=== PATIENT | male | born 1955 | race Caucasian/White ===

== ENCOUNTER 2018-11-11 10:19 | Emergency (ER) | payer MEDICARE, BC ==
[~2018-11-11] VITALS: Ht 182.9 cm; Wt 95.8 kg
[~2018-11-11 10:19] MED LIST: GOLYS PO; MULT-1085 PO
[2018-11-11 10:44] VITALS: BP 110/81
[2018-11-11 11:09] LABS: CLARITY,URINE CLOUDY (Clear); COLOR,URINE YELLOW (Yellow); GLUCOSE, URINE NEGATIVE (Neg); KETONES,URINE NEGATIVE (Neg); LEUKOCYTE ESTERASE ,URINE MODERATE (Neg); NITRITES, URINE POSITIVE (Neg); OCCULT BLOOD,URINE MODERATE (Neg); PROTEIN,URINE 100 mg/dl (Neg); UROBILINOGEN,URINE 0.2 E.U/dL (0.2-1.0)
[2018-11-11 11:10] LABS: UA COLLECTION TYPE CLN CATCH MIDSTREAM
[2018-11-11 11:16] LABS: BACTERIA,URINE 3+ /HPF (Neg); SQUAMOUS EPITHELIAL CELL,UR FEW /LPF (FEW)
[2018-11-11 11:17] LABS: WBC CLUMPS,URINE MANY /HPF (NEGATIVE); WBC,URINE TNTC /HPF (0-4)
[2018-11-12] MEDS ORDERED: CEPH500C5 PO (08:28)
== END 2018-11-11 14:57 | disposition left against medical advice (07) ==
LOC: ER 10:19
DX: R30.9 Painful micturition, unspecified (principal); R42 Dizziness and giddiness; R10.30 Lower abdominal pain, unspecified; R68.83 Chills (without fever); R33.9 Retention of urine, unspecified; Z53.21 Procedure and treatment not carried out due to patient leaving prior to being seen by health care provider
CPT/HCPCS: 81001; 87077; 87088; 87186

== ENCOUNTER 2018-11-12 05:50 | Emergency (ER) | payer MEDICARE, BC ==
[~2018-11-12] VITALS: Ht 182.9 cm; Wt 94.9 kg
[2018-11-12] MEDS ORDERED: normal saline 1000ML IV soln IVB ONE (06:50)
[2018-11-12] MEDS ORDERED: CefTRIAXone 2gm/D5W 50ml 50 ML IV ONE (06:50)
[2018-11-12 07:21] LABS: CLARITY,URINE CLOUDY (Clear); COLOR,URINE YELLOW (Yellow); GLUCOSE, URINE NEGATIVE (Neg); KETONES,URINE NEGATIVE (Neg); LEUKOCYTE ESTERASE ,URINE MODERATE (Neg); NITRITES, URINE POSITIVE (Neg); OCCULT BLOOD,URINE MODERATE (Neg); PROTEIN,URINE 100 mg/dl (Neg)
[2018-11-12 07:23] LABS: BASOPHILS # (AUTO) 0.1 X10'3 (0-0.2); BASOPHILS % (AUTO) 0.6 % (0-1); EOSINOPHILS # (AUTO) 0.1 X10'3 (0-0.9); EOSINOPHILS % (AUTO) 0.6 % (0-6); HEMATOCRIT 47.9 % (42.0-52.0); HEMOGLOBIN 16.4 g/dl (14.0-17.9); LYMPHOCYTES # (AUTO) 1.5 X10'3 (1.1-4.8); LYMPHOCYTES % (AUTO) 10.6 % (21-51); MEAN CORPUSCULAR HEMOGLOBIN 32.8 PG (27.0-31.0); MEAN CORPUSCULAR HGB CONC 34.2 g/dL (33.0-36.5); MONOCYTES # (AUTO) 1.3 X10'3 (0-0.9); NEUTROPHILS # (AUTO) 11.6 X10'3 (1.8-7.7); NEUTROPHILS % (AUTO) 79.2 % (42-75); PLATELET COUNT 245 X10'3 (140-440); RED BLOOD COUNT 4.99 X10'6 (4.70-6.10); RED CELL DISTRIBUTION WIDTH 13.1 % (11.5-14.5); WHITE BLOOD COUNT 14.6 X10'3 (4.5-11.0)
[2018-11-12 07:27] LABS: UA COLLECTION TYPE NON-SPECIFIED
[2018-11-12 07:28] LABS: WBC,URINE TNTC /HPF (0-4)
[2018-11-12 07:29] LABS: BACTERIA,URINE 3+ /HPF (Neg)
[2018-11-12 07:30] LABS: SQUAMOUS EPITHELIAL CELL,UR NONE SEEN /LPF (FEW)
[2018-11-12 07:34] LABS: ALANINE AMINOTRANSFERASE 42 U/L (12-78); ALBUMIN 3.4 G/DL (3.4-5.0); ALBUMIN/GLOBULIN RATIO 0.8 (1.1-1.5); ALKALINE PHOSPHATASE 101 IU/L (46-116); ANION GAP 9 (8-16); ASPARTATE AMINO TRANSFERASE 21 U/L (10-37); BLOOD UREA NITROGEN 12 MG/DL (7-18); BUN/CREATININE RATIO 13.6 (5.4-32.0); CALCIUM 9.8 MG/DL (8.5-10.1); CHLORIDE 98 MMOL/L (99-107); CREATININE 0.88 MG/DL (0.60-1.10); GLUCOSE 127 MG/DL (70-104); POTASSIUM 3.9 MMOL/L (3.5-5.1); SODIUM 133 MMOL/L (135-145); TOTAL CARBON DIOXIDE 25.7 MMOL/L (24-32); TOTAL PROTEIN 7.9 G/DL (6.4-8.2); eGFR 87 ML/MIN
[2018-11-12] MEDS ORDERED: CEPH500C5 PO (08:28)
[2018-11-12 08:44] VITALS: BP 129/76
== END 2018-11-12 08:45 | disposition home or self-care (01) ==
LOC: ER 05:50
DX: N39.0 Urinary tract infection, site not specified (principal); Z86.73 Personal history of transient ischemic attack (TIA), and cerebral infarction without residual deficits; Z98.890 Other specified postprocedural states; Z88.8 Allergy status to other drugs, medicaments and biological substances; Z79.2 Long term (current) use of antibiotics; Z79.899 Other long term (current) drug therapy
CPT/HCPCS: 36415; 71045; 80053; 81001; 83605; 84145; 85025; 87040; 87077; 87088; 87186; 96365; 99284; J0696; J7030

== ENCOUNTER 2019-01-21 08:22 | Day surgery (SDC) | payer MEDICARE, OTHER ==
[2019-01-13 15:12] LABS: BASOPHILS # (AUTO) 0.1 X10'3 (0-0.2); BASOPHILS % (AUTO) 0.9 % (0-1); EOSINOPHILS # (AUTO) 0.3 X10'3 (0-0.9); EOSINOPHILS % (AUTO) 3.1 % (0-6); LYMPHOCYTES # (AUTO) 2.6 X10'3 (1.1-4.8); LYMPHOCYTES % (AUTO) 25.4 % (21-51); MEAN CORPUSCULAR HEMOGLOBIN 32.8 PG (27.0-31.0); MEAN CORPUSCULAR HGB CONC 34.3 g/dL (33.0-36.5); MEAN CORPUSCULAR VOLUME 95.7 FL (78-98); MONOCYTES # (AUTO) 0.8 X10'3 (0-0.9); MONOCYTES % (AUTO) 7.4 % (2-12); NEUTROPHILS # (AUTO) 6.5 X10'3 (1.8-7.7); NEUTROPHILS % (AUTO) 63.2 % (42-75); PRE OP HEMATOCRIT 45.7 % (42.0-52.0); PRE OP HEMOGLOBIN 15.7 g/dL (14.0-17.9); PRE OP PARTIAL THROMB. TIME 28 SECONDS (22-32); PRE OP PLATELET COUNT 312 X10'3 (140-440); PRE OP PROTIME 9.7 SECONDS (9.0-12.0); RED BLOOD COUNT 4.77 X10'6 (4.70-6.10); RED CELL DISTRIBUTION WIDTH 13.5 % (11.5-14.5)
[2019-01-13 15:14] LABS: ALBUMIN 3.6 G/DL (3.4-5.0); ALBUMIN/GLOBULIN RATIO 0.9 (1.1-1.5); ALKALINE PHOSPHATASE 96 IU/L (46-116); BLOOD UREA NITROGEN 10 MG/DL (7-18); CALCIUM 9.5 MG/DL (8.5-10.1); CHLORIDE 104 MMOL/L (99-107); CREATININE 0.91 MG/DL (0.60-1.10); PRE OP ALT 55 U/L (30-65); PRE OP ANION GAP 7 (8-16); PRE OP AST 32 U/L (10-37); PRE OP BILIRUB, TOTAL 0.3 MG/DL (0.0-1.0); PRE OP GLUCOSE 103 MG/DL (70-104); PRE OP SODIUM 139 MMOL/L (135-145); TOTAL PROTEIN 7.4 G/DL (6.4-8.2); eGFR 84 ML/MIN
[2019-01-13 15:18] LABS: PRE OP INR < 0.9 INR
[~2019-01-21] VITALS: Ht 182.9 cm; Wt 96.5 kg
[2019-01-21] VITALS (17 sets, daily range): BP systolic 93–130; BP diastolic 62–98
[~2019-01-21 08:22] MED LIST changes: +DONE10TA7 PO; +FLO0.4C PO; -GOLYS PO; -MULT-1085 PO
[2019-01-21] MEDS ORDERED: ringers solution, lacted 1,000 ML IV SCH ×2 (08:59→09:00)
[2019-01-21] MEDS ORDERED: famotidine 20mg tablet PO ONE (09:00)
[2019-01-21] MEDS ORDERED: fentaNYL/PF 50MCG/1 ML 2ML syringe IV PRN ×2 (09:00)
[2019-01-21] MEDS ORDERED: cefazolin/dext.iso 2gm/50ml 50 ML IV ONE (09:00)
[2019-01-21] MEDS ORDERED: ondansetron/PF 4mg/2ml inj IV PRN ×2 (09:00→12:00)
[2019-01-21] MEDS ORDERED: albuterol 2.5 MG/3 ML nebule NEB ONE (09:00)
[2019-01-21] MEDS ORDERED: hydrALAZINE 20mg/ml inj. IV PRN (09:00)
[2019-01-21] MEDS ORDERED: morphine 4 MG/ML inj SYRINge IV PRN ×2 (09:00)
[2019-01-21] MEDS ORDERED: labetalol 20mg/4ml (5mg/ml) syringe IV PRN (09:00)
[2019-01-21] MEDS ORDERED: MIDAZolam 5mg/5ml vial ONE (10:31)
[2019-01-21] MEDS ORDERED: fentaNYL/PF 50MCG/1 ML 2ML syringe ONE (10:31)
[2019-01-21] MEDS ORDERED: propofol inj 20 ML IV ONE (10:51)
[2019-01-21] MEDS ORDERED: LIDOcaine 2% (20mg/ml) 5ml vial ONE (10:51)
--- NOTE | 2019-01-21 11:50 | NUR ---
Received from OR via SURGICAL BED, accompanied by Anesthesiologist DR. RIGGINS and report given by Anesthesiolgist. PT ARRIVED AWAKE AND TALKING. PLACED ON O2 VIA NC. SPINAL SENSATION AT HIGH THIGH. MOVES UPPER EXT WNL. PULSES AND DENTAL SECRETARY WNL. BLADDER IRRIGATION RUNNING WITH CLEAR OUTPUT
[2019-01-21] MEDS ORDERED: acetaminophen 325mg tablet PO PRN (12:00)
[2019-01-21] MEDS ORDERED: zolpidem 5mg tablet PO PRN (12:00)
[2019-01-21] MEDS ORDERED: oxybutynin 5mg tablet PO PRN (12:00)
[2019-01-21] MEDS ORDERED: mag hydrox/Alum hydrox/simeth 30ml oral suspension PO PRN (12:00)
[2019-01-21] MEDS ORDERED: HYDROcodone/acetaminophen 10/325mg tab PO PRN (12:00)
[2019-01-21] MEDS ORDERED: opium/belladonna alkaloids No. 15A 30mg rectal suppository RC PRN (12:00)
[2019-01-21] MEDS ORDERED: proCHLORperazine 10 MG/2 ml inj IV PRN (12:00)
--- NOTE | 2019-01-21 13:00 | NUR ---
Report called to receiving nurse HALI TRIPP. Transferred via SURGICAL BED TO ROOM 358A. Belongings X 1 BAG TAKEN TO ROOM WITH PT. AND SISTER IN ROOM WITH PT ON TRANSFER. Special Issues communicated to receiving nurse. VSS ON 2L O2 VIA NC.
[2019-01-21] MEDS: potassium cl 20mEq in 1/2 NS 1,000 ML IV SCH ×2 (17:26→18:28)
--- NOTE | 2019-01-21 18:19 | NUR ---
Patient in room TROY 358. I have received report from Marina TRIPP and had the opportunity to ask questions and assume patient care. Patient is resting and shows no sing of distress. He has continuos bladder irrigation due to surgery.
--- NOTE | 2019-01-21 19:00 | NUR ---
PT DID NOT GET MORPHINE ADMINISTERED.
[2019-01-21] MEDS: docusate sod 100mg capsule PO SCH (19:51)
[2019-01-21] MEDS: tamsulosin 0.4mg capsule PO SCH (19:52)
[2019-01-22] VITALS: BP 117/59
[2019-01-22] MEDS: potassium cl 20mEq in 1/2 NS 1,000 ML IV SCH ×2 (01:46→09:35)
[2019-01-22 06:21] LABS: BASOPHILS # (AUTO) 0.1 X10'3 (0-0.2); BASOPHILS % (AUTO) 0.8 % (0-1); EOSINOPHILS # (AUTO) 0.2 X10'3 (0-0.9); EOSINOPHILS % (AUTO) 2.3 % (0-6); HEMOGLOBIN 15.2 g/dl (14.0-17.9); LYMPHOCYTES # (AUTO) 1.8 X10'3 (1.1-4.8); LYMPHOCYTES % (AUTO) 17.8 % (21-51); MEAN CORPUSCULAR HEMOGLOBIN 33.7 PG (27.0-31.0); MEAN CORPUSCULAR HGB CONC 34.6 g/dL (33.0-36.5); MEAN CORPUSCULAR VOLUME 97.2 FL (78-98); MEAN PLATELET VOLUME 8.1 FL (7.4-10.4); MONOCYTES # (AUTO) 0.8 X10'3 (0-0.9); NEUTROPHILS # (AUTO) 7.2 X10'3 (1.8-7.7); NEUTROPHILS % (AUTO) 71.1 % (42-75); PLATELET COUNT 272 X10'3 (140-440); RED BLOOD COUNT 4.53 X10'6 (4.70-6.10); WHITE BLOOD COUNT 10.2 X10'3 (4.5-11.0)
--- NOTE | 2019-01-22 06:26 | NUR ---
Problems reprioritized. Patient report given, questions answered & plan of care reviewed with Sujata TRIPP. pateint is resting and denied having paing. The FC is draing well. CBI clear and no visible clots.
[2019-01-22 06:27] LABS: ALBUMIN 3.1 G/DL (3.4-5.0); ANION GAP 9 (8-16); BLOOD UREA NITROGEN 9 MG/DL (7-18); CALCIUM 9.2 MG/DL (8.5-10.1); CHLORIDE 105 MMOL/L (99-107); CREATININE 0.82 MG/DL (0.60-1.10); GLUCOSE 102 MG/DL (70-104); SODIUM 139 MMOL/L (135-145); TOTAL CARBON DIOXIDE 25.4 MMOL/L (24-32); eGFR > 90 ML/MIN
--- NOTE | 2019-01-22 06:57 | NUR ---
Patient in room TROY 358. I have received report from Daniela TRIPP and had the opportunity to ask questions and assume patient care.
[2019-01-22] MEDS ORDERED: pantoprazole 40mg Tablet.DR PO SCH (07:30)
[2019-01-22] MEDS: docusate sod 100mg capsule PO SCH (07:48)
[2019-01-22] MEDS: tamsulosin 0.4mg capsule PO SCH (07:48)
[2019-01-22 08:00] VITALS: BP 140/88
[2019-01-22] MEDS ORDERED: donepezil 5mg tablet PO SCH (08:00)
[2019-01-22] MEDS ORDERED: DOCU-148 PO (09:14)
== END 2019-01-22 12:30 | disposition home or self-care (01) ==
LOC: PAS 08:22 → SUR 3N 11:59 → PAS 01-22 12:30
PROVIDERS: ATTEND Urology
DX: N40.1 Benign prostatic hyperplasia with lower urinary tract symptoms (principal); N13.8 Other obstructive and reflux uropathy; N32.89 Other specified disorders of bladder; N41.8 Other inflammatory diseases of prostate; J44.9 Chronic obstructive pulmonary disease, unspecified; Z87.891 Personal history of nicotine dependence; Z86.73 Personal history of transient ischemic attack (TIA), and cerebral infarction without residual deficits; Z79.899 Other long term (current) drug therapy; Z72.89 Other problems related to lifestyle; Z87.440 Personal history of urinary (tract) infections; Z88.1 Allergy status to other antibiotic agents
CPT/HCPCS: 36415; 52601; 71046; 80048; 80053; 82948; 85025; 85610; 85730; 86885; 86900; 86901; 93005; J2001; J2250; J2704; J3010; J7120; 88305; 88311; A4346; A4355; A4615; G0378; J3480

== ENCOUNTER 2022-07-09 07:55 | Day surgery (SDC) | payer MEDICARE, OTHER ==
[2022-07-04 14:04] LABS: BASOPHILS # (AUTO) 0.1 X10'3 (0-0.2); BASOPHILS % (AUTO) 1.1 % (0-1); EOSINOPHILS # (AUTO) 0.3 X10'3 (0-0.9); EOSINOPHILS % (AUTO) 3.1 % (0-6); LYMPHOCYTES # (AUTO) 2.4 X10'3 (1.1-4.8); MEAN CORPUSCULAR HEMOGLOBIN 32.5 PG (27.0-31.0); MEAN CORPUSCULAR HGB CONC 34.2 g/dL (33.0-36.5); MEAN CORPUSCULAR VOLUME 95.1 FL (78-98); MONOCYTES # (AUTO) 0.8 X10'3 (0-0.9); MONOCYTES % (AUTO) 8.8 % (2-12); NEUTROPHILS # (AUTO) 5.7 X10'3 (1.8-7.7); PRE OP HEMOGLOBIN 16.1 g/dL (14.0-17.9); PRE OP PLATELET COUNT 282 X10'3 (140-440); RED BLOOD COUNT 4.94 X10'6 (4.70-6.10); RED CELL DISTRIBUTION WIDTH 13.2 % (11.5-14.5)
[2022-07-04 14:23] LABS: ALBUMIN 3.6 G/DL (3.4-5.0); ALBUMIN/GLOBULIN RATIO 0.9 (1.1-1.5); ALKALINE PHOSPHATASE 98 IU/L (46-116); BLOOD UREA NITROGEN 14 MG/DL (7-18); BUN/CREATININE RATIO 17.3 (5.4-32.0); CALCIUM 9.6 MG/DL (8.5-10.1); CHLORIDE 103 MMOL/L (99-107); CREATININE 0.81 MG/DL (0.60-1.10); PRE OP ALT 49 U/L (30-65); PRE OP ANION GAP 10 (8-16); PRE OP AST 35 U/L (10-37); PRE OP BILIRUB, TOTAL 0.4 MG/DL (0.0-1.0); PRE OP GLUCOSE 98 MG/DL (70-104); PRE OP POTASSIUM 4.1 MMOL/L (3.4-5.1); PRE OP SODIUM 138 MMOL/L (135-145); TOTAL CARBON DIOXIDE 25.5 MMOL/L (24-32); TOTAL PROTEIN 7.4 G/DL (6.4-8.2); eGFR > 90 ML/MIN
[2022-07-04 14:23] LABS: CLARITY,URINE CLOUDY (Clear); COLOR,URINE YELLOW (Yellow); GLUCOSE, URINE NEGATIVE (Neg); KETONES,URINE NEGATIVE (Neg); LEUKOCYTE ESTERASE ,URINE SMALL (Neg); NITRITES, URINE POSITIVE (Neg); OCCULT BLOOD,URINE TRACE-INTACT (Neg); PROTEIN,URINE 100 mg/dl (Neg); UROBILINOGEN,URINE 0.2 E.U/dL (0.2-1.0)
[2022-07-04 14:25] LABS: UA COLLECTION TYPE CLN CATCH MIDSTREAM
[2022-07-04 14:30] LABS: BACTERIA,URINE 4+ /HPF (Neg); MUCUS STRANDS NONE SEEN /LPF (Neg); RBC,URINE 0-2 /HPF (0-2); SQUAMOUS EPITHELIAL CELL,UR NONE SEEN /LPF (FEW); WBC CLUMPS,URINE MANY /HPF (NEGATIVE); WBC,URINE TNTC /HPF (0-4)
[~2022-07-09] VITALS: Ht 182.9 cm; Wt 95.7 kg
[2022-07-09] VITALS (11 sets, daily range): BP systolic 130–159; BP diastolic 72–89
[~2022-07-09 07:55] MED LIST changes: -DONE10TA7 PO; -FLO0.4C PO; +MULT-227 PO; +NAPR-996 PO; +ROSU20TA31 PO; +cefazolin 2gm/D5W 100mL 100 ML IV ONE; +famotidine 20mg tablet PO ONE; +ringers solution, lacted 1,000 ML IV SCH
[2022-07-09] MEDS ORDERED: BUPIVAcaine 0.5% inj/PF 30 ML ONE (11:04)
[2022-07-09] MEDS ORDERED: midazolam 1 mg/ML 2ml injection ONE (11:19)
[2022-07-09] MEDS ORDERED: rocuronium 10mg/ml inj IV ONE ×2 (11:19→11:24)
[2022-07-09] MEDS ORDERED: fentaNYL /PF 50mcg/ml 5ml ampule ONE (11:19)
[2022-07-09] MEDS ORDERED: propofol inj 20 ML IV ONE (11:19)
[2022-07-09] MEDS ORDERED: ondansetron/PF 4mg/2ml inj ONE (11:24)
[2022-07-09] MEDS ORDERED: dexamethasone sod phosphate 10mg/ml inj ONE (11:24)
[2022-07-09] MEDS ORDERED: sevoflurane 250ml liquid IH ONE (11:24)
[2022-07-09] MEDS ORDERED: meperidine/PF 25mg/ml syringe IV PRN ×2 (11:25)
[2022-07-09] MEDS ORDERED: ringers solution, lacted 1,000 ML IV SCH (11:25)
[2022-07-09] MEDS ORDERED: ondansetron/PF 4mg/2ml inj IV PRN (11:25)
[2022-07-09] MEDS ORDERED: proCHLORperazine 10 MG/2 ml inj IV PRN (11:25)
[2022-07-09] MEDS ORDERED: morphine 2 MG/ML inj. syringe IV PRN (11:25)
[2022-07-09] MEDS ORDERED: BUPIVAcaine 0.5% inj/PF 30 ml vial IJ ONE (12:19)
[2022-07-09] MEDS ORDERED: neostigmine methylsulfate 1 MG/ML 10ml vial ONE (13:58)
[2022-07-09] MEDS ORDERED: glycopyrrolate 0.2mg/ml inj ONE (13:58)
--- NOTE | 2022-07-09 14:06 | NUR ---
Received from OR via ST[facility], accompanied by Anesthesiologist and report given by MELANIA Anesthesiologist. PATIENT WAKING UP, DENIES PAIN, V/S WNL, PIV 20G LEFT AC, DERMABONDED LAPS SITES CLOSED C/D/I TO ABDOMEN. Addendum: 07/09/22 at 1416 by Erik Lancaster RN Amended: Links added.
[2022-07-09] MEDS: meperidine/PF 25mg/ml syringe IV PRN ×2 (14:19→14:41)
[2022-07-09] MEDS: morphine 4 MG/ML inj SYRINge IV PRN ×3 (14:25→14:50)
[2022-07-09] MEDS ORDERED: oxyCODONE/APAP 5-325mg tablet PO ONE (15:15)
--- NOTE | 2022-07-09 15:30 | NUR ---
PATIENT URINATED 100 CC OF CLEAR YELLOW URINE. PERFORMED URINARY BLADDER SCANNER AND 285 CC OF URINE NOTED. Addendum: 07/09/22 at 1546 by Erik Lancaster RN Amended: Links added.
--- NOTE | 2022-07-09 16:06 | NUR ---
ALL DISCHARGE CRITERIA HAS BEEN MET. VSS, PAIN AT A TOLERABLE LEVEL, VOIDING AND ABLE TO SAFELY AMBULATE AND TRANSFER SELF. IV TAKEN OUT WITHOUT ANY COMPLICATIONS. ALL DISCHARGE INSTRUCTIONS COVERED WITH PATIENT AND ALL QUESTIONS ANSWERED. PATIENT TAKEN OUT VIA WHEELCHAIR WITH ALL BELONGINGS TO PERSONAL VEHICLE WHERE FAMILY DROVE PATIENT HOME. Addendum: 07/09/22 at 1608 by Erik Lancaster RN Amended: Links added.
== END 2022-07-09 16:06 | disposition home or self-care (01) ==
LOC: PAS 07:55
PROVIDERS: ATTEND Surgery
DX: K40.90 Unilateral inguinal hernia, without obstruction or gangrene, not specified as recurrent (principal); D17.6 Benign lipomatous neoplasm of spermatic cord; K66.0 Peritoneal adhesions (postprocedural) (postinfection); M19.90 Unspecified osteoarthritis, unspecified site; N40.0 Benign prostatic hyperplasia without lower urinary tract symptoms; G62.9 Polyneuropathy, unspecified; E78.5 Hyperlipidemia, unspecified; F32.9 Major depressive disorder, single episode, unspecified; F17.210 Nicotine dependence, cigarettes, uncomplicated; Z72.89 Other problems related to lifestyle; Z86.73 Personal history of transient ischemic attack (TIA), and cerebral infarction without residual deficits; Z98.890 Other specified postprocedural states; Z87.440 Personal history of urinary (tract) infections; Z79.899 Other long term (current) drug therapy; Z88.1 Allergy status to other antibiotic agents; Z88.5 Allergy status to narcotic agent; Z82.49 Family history of ischemic heart disease and other diseases of the circulatory system
CPT/HCPCS: 49650; C1758; C1781; J0690; J2175; J2250; J2270; J2704; J2710; J3010; J3490; J7030; J7120; S0020; Z7506; Z7508; Z7512; 36415; 71046; 80053; 81001; 82948; 85025; 87077; 87088; 87186; 93005; A4215; A4618; J1100; J2405

== ENCOUNTER 2022-07-10 04:55 | Inpatient (IN) | payer MEDICARE, OTHER ==
[~2022-07-10] VITALS: Ht 182.9 cm; Wt 96.0 kg
[~2022-07-10 04:55] MED LIST changes: -cefazolin 2gm/D5W 100mL 100 ML IV ONE; -famotidine 20mg tablet PO ONE; -ringers solution, lacted 1,000 ML IV SCH
[2022-07-10] MEDS ORDERED: ondansetron/PF 4mg/2ml inj IV ONE (06:29)
[2022-07-10] MEDS ORDERED: morphine 4 MG/ML inj SYRINge IV ONE ×3 (06:30→09:55)
[2022-07-10 07:11] LABS: BASOPHILS % (AUTO) 0.3 % (0-1); EOSINOPHILS % (AUTO) 0.1 % (0-6); HEMATOCRIT 49.6 % (42.0-52.0); HEMOGLOBIN 16.6 g/dl (14.0-17.9); LYMPHOCYTES # (AUTO) 0.9 X10'3 (1.1-4.8); LYMPHOCYTES % (AUTO) 7.3 % (21-51); MEAN CORPUSCULAR HGB CONC 33.5 g/dL (33.0-36.5); MEAN CORPUSCULAR VOLUME 95.7 FL (78-98); MONOCYTES # (AUTO) 0.7 X10'3 (0-0.9); MONOCYTES % (AUTO) 5.2 % (2-12); NEUTROPHILS % (AUTO) 87.1 % (42-75); PLATELET COUNT 338 X10'3 (140-440); RED BLOOD COUNT 5.19 X10'6 (4.70-6.10); RED CELL DISTRIBUTION WIDTH 13.3 % (11.5-14.5); WHITE BLOOD COUNT 12.6 X10'3 (4.5-11.0)
[2022-07-10 07:27] LABS: ALANINE AMINOTRANSFERASE 35 U/L (12-78); ALBUMIN 3.5 G/DL (3.4-5.0); ALBUMIN/GLOBULIN RATIO 0.9 (1.1-1.5); ALKALINE PHOSPHATASE 92 IU/L (46-116); ANION GAP 10 (8-16); ASPARTATE AMINO TRANSFERASE 26 U/L (10-37); BILIRUBIN,TOTAL 0.7 MG/DL (0.1-1.0); BLOOD UREA NITROGEN 16 MG/DL (7-18); BUN/CREATININE RATIO 17.2 (5.4-32.0); CALCIUM 9.1 MG/DL (8.5-10.1); CHLORIDE 98 MMOL/L (99-107); CREATININE 0.93 MG/DL (0.60-1.10); GLUCOSE 188 MG/DL (70-104); SODIUM 133 MMOL/L (135-145); TOTAL PROTEIN 7.3 G/DL (6.4-8.2); eGFR 81 ML/MIN
[2022-07-10 07:37] LABS: MAGNESIUM 1.6 MG/DL (1.5-2.4)
[2022-07-10] MEDS ORDERED: iohexol 300mg/ml 100ml inj. ONE (07:43)
[2022-07-10] MEDS ORDERED: normal saline 1000ml 1,000 ML IV ONE ×2 (07:45→09:25)
[2022-07-10] MEDS ORDERED: LIDOcaine 2% 10ml TOPICAL JELLY (Urojet) TP ONE (08:00)
--- NOTE | 2022-07-10 08:23 | NUR ---
vanessa placed, pt bore down and a small amount of blood was expelled from meatus. Dr Vargas notified. good output from vanessa Addendum: 07/10/22 at 0835 by FLOWER THIS rn OBSERVED MANAGER DEVELOPMENT PLACE VANESSA, URINE FLASH APPRECIATED VANESSA IN BLADDER AND BALLOON INFLATED. SHORTLY AFTER PT BORE DOWN AND SOME RITCHIE BLOOD CAME OUT FROM MEATUS. MINIMAL URINE OUTPUT, BLEEDING CONTINUED SO VANESSA WAS D/C AFTER PT STATED HE HAD BEEN INCONTINENT EARLIER IN THE DAY. ALL INFORMATION RELAYED TO DR VARGAS. NO NEW ORDERS RECEIVED.
--- NOTE | 2022-07-10 10:30 | NUR ---
BLADDER SCAN 645
--- NOTE | 2022-07-10 10:38 | NUR ---
pt related that he has had urinary retention symptoms since surgery and that when he was able to urinate a few drops it was blood tinged prior to arrival at hospital
[2022-07-10] MEDS ORDERED: morphine 2 MG/ML inj. syringe IV PRN (10:40)
[2022-07-10] MEDS ORDERED: potassium Cl 20 mEq SR tablet PO PRN ×2 (10:40)
[2022-07-10] MEDS ORDERED: potassium Cl 40MEQ/1/2NS 520ml 520 ML IV PRN (10:40)
[2022-07-10] MEDS ORDERED: magnesium hydroxide 30ml (MOM) UD suspension PO PRN (10:40)
[2022-07-10] MEDS ORDERED: magnesium 4gm in 100ml NS 100 ML IV PRN (10:40)
[2022-07-10] MEDS ORDERED: magnesium Cl slow-release 64mg tablet PO PRN (10:40)
[2022-07-10] MEDS ORDERED: acetaminophen 325mg tablet PO PRN (10:40)
[2022-07-10] MEDS: normal saline 1000ml 1,000 ML IV SCH ×2 (10:50→21:17)
--- NOTE | 2022-07-10 11:31 | NUR ---
bladder scan 942, DR ROSA AT BEDSIDE WILL CONSULT WITH SYBIL AND UROLOGY TO DETERMINE WHETHER ANOTHER CATHETHER WILL BE PLACED
[2022-07-10] MEDS: morphine 2 MG/ML inj. syringe IV PRN ×2 (11:43→16:09)
--- NOTE | 2022-07-10 12:11 | NUR ---
pts Melody called for update, provided update and answered questions
--- NOTE | 2022-07-10 12:30 | NUR ---
ED BED 12-- Pt is in pain RR 30 still no urine output. Can you please call for a discussion re this patient? Possible 3 way catheter and CBI if needed? [phone]
--- NOTE | 2022-07-10 13:05 | NUR ---
received orders from dr mac to place a 20 chilean coude catheter. Sent tech to materials as we have none on the floor
[2022-07-10] MEDS ORDERED: LidoCAINE 2% Topical Jelly 11mL syringe TOP ONE (13:20)
--- NOTE | 2022-07-10 13:20 | NUR ---
AT BEDSIDE THOMAS RN PLACING COUDE CATHETER, SOME BLOOD NO URINE RETURN.
--- NOTE | 2022-07-10 13:48 | NUR ---
CALL PLACED TO DR SHANE PER DR ROSA'S INSTRUCTIONS DR SHANE TO CALL BACK HE IS WITH PATIENTS. INFORMED OFFICE STAFF THAT PT IS NOT DRAINING URINE AND THERE IS A SMALL AMOUNT OF BLOOD IN THE TUBE ONLY. last BLADDER SCAN WAS OVER 700 CC
--- NOTE | 2022-07-10 14:45 | NUR ---
RECEIVED ORDERS FROM DR SHANE TO ATTEMPT TO EVACUATE CLOT. UNABLE TO DO SO, CALLED DR SHANE FOR FURTHER INSTRUCTION. DR SHANE NOT CONCERNED ABOUT RUPTURE AND WILL COME TO BEDSIDE
--- NOTE | 2022-07-10 15:39 | NUR ---
DR SHANE AT BEDSIDE TO PLACE RED TABITHA COUDE CATHETER
--- NOTE | 2022-07-10 16:32 | NUR ---
Coude catheter placed by Dr Miguel good urine output pt reports relief
--- NOTE | 2022-07-10 18:48 | NUR ---
ALL IV MEDICATIONS THAT WERE REASSESSED BY MOP MACHINE OPERATOR WERE NOT COMPLETED BY PREVIOUS RN. ALL FLUIDS STOPPED IN IV SPREAD SHEET.
[2022-07-10] MEDS: docusate sod 100mg capsule PO SCH (20:00)
[2022-07-10] MEDS: K and/or MAG REPLACEMENT MC SCH (20:22)
[2022-07-10] MEDS: HYDROmorphone inj. 0.5 MG/0.5 ML DISP.SYRIN IV PRN (21:31)
[2022-07-11] MEDS ORDERED: albuterol 2.5 MG/3 ML nebule NEB STA (01:46)
[2022-07-11] MEDS: HYDROmorphone inj. 0.5 MG/0.5 ML DISP.SYRIN IV PRN ×5 (01:55→16:38)
--- NOTE | 2022-07-11 02:06 | NUR ---
PT C/O SOB, LABORED BREATHING AND WHEEZING NOTED. O2 SATURATION 93% ON 3L. MD RODRÍGUEZ NOTIFIED. PT REPOSITIONED IN BED AND TO RECIEVE BREATHING TX ORDERED BY . PT GIVEN PRN PAIN MEDICATION AND PLACED ON A HOSPITAL BED.
[2022-07-11] MEDS ORDERED: acetaminophen 1,000mg/100ml IV 100 ML IV PRN (02:50)
[2022-07-11] MEDS ORDERED: vancomycin/NS 1 GM ADD-VANTAGE 250 ML X 1 DOSE IV ONE (03:00)
[2022-07-11 04:32] LABS: BASOPHILS % (AUTO) 0.1 % (0-1); EOSINOPHILS % (AUTO) 0 % (0-6); HEMATOCRIT 50.1 % (42.0-52.0); HEMOGLOBIN 16.8 g/dl (14.0-17.9); LYMPHOCYTES # (AUTO) 0.7 X10'3 (1.1-4.8); LYMPHOCYTES % (AUTO) 8.2 % (21-51); MEAN CORPUSCULAR HEMOGLOBIN 32.2 PG (27.0-31.0); MEAN CORPUSCULAR HGB CONC 33.4 g/dL (33.0-36.5); MEAN CORPUSCULAR VOLUME 96.2 FL (78-98); MEAN PLATELET VOLUME 8.1 FL (7.4-10.4); MONOCYTES # (AUTO) 0.5 X10'3 (0-0.9); MONOCYTES % (AUTO) 5.5 % (2-12); NEUTROPHILS # (AUTO) 7.4 X10'3 (1.8-7.7); NEUTROPHILS % (AUTO) 86.2 % (42-75); PLATELET COUNT 266 X10'3 (140-440); RED BLOOD COUNT 5.21 X10'6 (4.70-6.10); RED CELL DISTRIBUTION WIDTH 13.5 % (11.5-14.5); WHITE BLOOD COUNT 8.5 X10'3 (4.5-11.0)
[2022-07-11 04:44] LABS: ALBUMIN 2.2 G/DL (3.4-5.0); ANION GAP 9 (8-16); BLOOD UREA NITROGEN 32 MG/DL (7-18); CALCIUM 8.7 MG/DL (8.5-10.1); CHLORIDE 104 MMOL/L (99-107); CREATININE 1.23 MG/DL (0.60-1.10); GLUCOSE 158 MG/DL (70-104); POTASSIUM 4.3 MMOL/L (3.5-5.1); SODIUM 137 MMOL/L (135-145); TOTAL CARBON DIOXIDE 23.6 MMOL/L (24-32); eGFR 59 ML/MIN
--- NOTE | 2022-07-11 05:39 | NUR ---
PT PLACED ON BILATERAL SCDs
[2022-07-11] MEDS: normal saline 1000ml 1,000 ML IV SCH ×2 (07:39→17:40)
[2022-07-11] MEDS: K and/or MAG REPLACEMENT MC SCH ×2 (08:00→20:00)
[2022-07-11] MEDS: docusate sod 100mg capsule PO SCH ×2 (08:00→20:00)
[2022-07-11] MEDS: multivitamins, therapeutics tablet PO SCH (08:35)
--- NOTE | 2022-07-11 09:09 | NUR ---
ATTEMPT TO CALL SURGICAL NURSE TO GIVE REPORT, RN UNAVAILABLE WILL CALL THIS RN BACK IN 10
--- NOTE | 2022-07-11 09:17 | NUR ---
ED BED 12 PT has oral meds due, NPO with ileus on bowel rest. Ok to hold colace and multivitamin? [phone] page sent to [address] Pitts
--- NOTE | 2022-07-11 09:21 | NUR ---
UNABLE TO CALL REPORT, WILL CALL AGAIN IN 10 MINUTES
[2022-07-11] MEDS ORDERED: normal saline 500ml IV soln 500 ML IV ONE (10:20)
[2022-07-11] MEDS ORDERED: furosemide 20 MG/2 ML vial IV ONE (10:45)
[2022-07-11 11:02] VITALS: BP 109/75
--- NOTE | 2022-07-11 11:35 | NUR ---
PAGER ID: [phone] MESSAGE: [id number] RE: 346A MYLES, 3 ATTEMPTS FOR NG PLACEMENT UNSUCCESSFUL, DID YOU WANT IR TO PLACE NG TUBE? THANKS CARY.
[2022-07-11] MEDS: piperacillin/tazo 3.375gm/50ml 50 ML IV SCH ×2 (11:53→16:38)
--- NOTE | 2022-07-11 12:04 | NUR ---
PAGER ID: [phone] MESSAGE: [facility] [id number] RE: 346A MYLES, 3 ATTEMPTS FOR NG PLACEMENT UNSUCCESSFUL, DID YOU WANT IR TO TRY TO PLACE NG TUBE? THANKS CARY.
[2022-07-11] MEDS: ipratropium/albuterol 3ml nebule NEB PRN ×2 (12:26→20:12)
[2022-07-11] MEDS ORDERED: PERFLUTREN PROTEIN-A MICROSPHR (Optison) 0.22 MG/ML 3ML VIAL IV ONE (14:45)
--- NOTE | 2022-07-11 14:57 | NUR ---
GI nurse came up to attempt placement of a kingm randa RIVAS RN tried 2 times and was unable to achieve placement. Patient states he is done with attempts. Patient wants to be sedated to place NG. Will notify .
[2022-07-11] MEDS: methylPREDNISolone sod succ 125mg/2ml vial IV SCH ×2 (15:44→20:44)
--- NOTE | 2022-07-11 15:49 | NUR ---
Surgeon aware of the fact that the NG tube is not able to be placed at this time. Surgeon recommended the patient to walk at this time.
--- NOTE | 2022-07-11 15:53 | NUR ---
PAGER ID: [phone] MESSAGE: [facility]328 re: 346a Fitz. Patient does have NS running at 100 and still sounds really wet, would you like to decrease the rate of infusion. Thanks Hill Addendum: 07/11/22 at 1619 by Mingo Shi RN called back with new orders
[2022-07-11] MEDS ORDERED: vancomycin/NS 1 GM ADD-VANTAGE 250 ML IV SCH (16:00)
--- NOTE | 2022-07-11 18:23 | NUR ---
Problems reprioritized. Patient report given, questions answered & plan of care reviewed with Bella TRIPP.
[2022-07-11] MEDS ORDERED: furosemide 40mg/4ml inj IV ONE (19:00)
[2022-07-11] MEDS: atorvastatin 20mg tablet PO SCH (20:54)
[2022-07-11 22:00] VITALS: BP 130/83
[2022-07-11] MEDS: morphine 2 MG/ML inj. syringe IV PRN (22:42)
[2022-07-12] MEDS: piperacillin/tazo 3.375gm/50ml 50 ML IV SCH ×3 (00:31→16:13)
--- NOTE | 2022-07-12 01:45 | NUR ---
PT MISERABLE, AGREED FOR X1 ATTEMPT OF NGT. NTG PLACED IN LEFT NARE, APPROX 1800ML DARK BROWN, COFFEE GROUND LIQUID AT THIS TIME, CONTINUES TO DRAIN. PT TOLERATED WELL Addendum: 07/12/22 at 0147 by Dana Camejo RN Amended: Links added.
--- NOTE | 2022-07-12 06:48 | NUR ---
Patient in room [facility] 346. I have received report from DANIA TRIPP and had the opportunity to ask questions and assume patient care.
[2022-07-12 06:52] VITALS: BP 123/81
[2022-07-12 07:02] VITALS: BP 132/87
[2022-07-12] MEDS: HYDROmorphone inj. 0.5 MG/0.5 ML DISP.SYRIN IV PRN (07:55)
[2022-07-12] MEDS: K and/or MAG REPLACEMENT MC SCH ×2 (08:00→20:00)
[2022-07-12] MEDS: methylPREDNISolone sod succ 125mg/2ml vial IV SCH ×2 (08:00→21:57)
[2022-07-12 08:10] LABS: BASOPHILS % (AUTO) 0.1 % (0-1); EOSINOPHILS % (AUTO) 0 % (0-6); HEMATOCRIT 44.7 % (42.0-52.0); LYMPHOCYTES # (AUTO) 0.6 X10'3 (1.1-4.8); LYMPHOCYTES % (AUTO) 4.7 % (21-51); MEAN CORPUSCULAR HGB CONC 33.6 g/dL (33.0-36.5); MEAN CORPUSCULAR VOLUME 95.3 FL (78-98); MEAN PLATELET VOLUME 8.6 FL (7.4-10.4); MONOCYTES # (AUTO) 0.8 X10'3 (0-0.9); MONOCYTES % (AUTO) 5.9 % (2-12); NEUTROPHILS # (AUTO) 11.5 X10'3 (1.8-7.7); NEUTROPHILS % (AUTO) 89.3 % (42-75); PLATELET COUNT 303 X10'3 (140-440); RED BLOOD COUNT 4.69 X10'6 (4.70-6.10); RED CELL DISTRIBUTION WIDTH 13.2 % (11.5-14.5); WHITE BLOOD COUNT 12.9 X10'3 (4.5-11.0)
[2022-07-12 08:35] LABS: ALANINE AMINOTRANSFERASE 30 U/L (12-78); ALBUMIN 2.1 G/DL (3.4-5.0); ALBUMIN/GLOBULIN RATIO 0.5 (1.1-1.5); ALKALINE PHOSPHATASE 57 IU/L (46-116); ANION GAP 7 (8-16); ASPARTATE AMINO TRANSFERASE 58 U/L (10-37); BILIRUBIN,TOTAL 0.6 MG/DL (0.1-1.0); BLOOD UREA NITROGEN 63 MG/DL (7-18); BUN/CREATININE RATIO 38.2 (5.4-32.0); CALCIUM 9.9 MG/DL (8.5-10.1); CHLORIDE 101 MMOL/L (99-107); CREATININE 1.65 MG/DL (0.60-1.10); GLUCOSE 151 MG/DL (70-104); POTASSIUM 3.8 MMOL/L (3.5-5.1); SODIUM 139 MMOL/L (135-145); TOTAL CARBON DIOXIDE 30.6 MMOL/L (24-32); TOTAL PROTEIN 6.5 G/DL (6.4-8.2); eGFR 42 ML/MIN
[2022-07-12 08:36] LABS: PLATELET ESTIMATE NORMAL; TOTAL CELLS COUNTED 100
[2022-07-12] MEDS: multivitamins, therapeutics tablet PO SCH (09:27)
[2022-07-12] MEDS: docusate sod 100mg capsule PO SCH ×2 (09:28→20:00)
[2022-07-12] MEDS ORDERED: NORMAL SALINE IVB ONE (11:00)
[2022-07-12] MEDS: normal saline 1000ml 1,000 ML IV SCH ×2 (11:59→16:17)
[2022-07-12 12:44] VITALS: BP 144/89
[2022-07-12] MEDS ORDERED: VANCOMYCIN LEVEL IV ONE (15:30)
[2022-07-12] MEDS: ipratropium/albuterol 3ml nebule NEB PRN (16:09)
--- NOTE | 2022-07-12 18:39 | NUR ---
Problems reprioritized. Patient report given, questions answered & plan of care reviewed with Shyam TRIPP.
--- NOTE | 2022-07-12 18:41 | NUR ---
Patient MD came to room and spoke to patient more than the earlier round. Patient just kept asking for water from the MD even though MD was notified surgeon has placed patient on sips chips and popsicles. Md said it was okay to bring the patient a glass of water. Patient has taken to that as the MD said it is okay for him to drink all he wants. Patient NG tube value will be largely changed by intake and patient is supposed to have bowel rest for Ileus but continues to request more and more water.
[2022-07-12] MEDS: ipratropium/albuterol 3ml nebule NEB SCH (20:50)
[2022-07-12] MEDS: atorvastatin 20mg tablet PO SCH (21:57)
[2022-07-12 22:00] VITALS: BP 110/55
[2022-07-13] MEDS: piperacillin/tazo 3.375gm/50ml 50 ML IV SCH ×3 (00:33→16:30)
[2022-07-13 02:00] VITALS: BP 154/92
[2022-07-13] MEDS: ondansetron/PF 4mg/2ml inj IV PRN (02:14)
[2022-07-13] MEDS: ipratropium/albuterol 3ml nebule NEB PRN (02:22)
[2022-07-13] MEDS: ipratropium/albuterol 3ml nebule NEB SCH ×4 (02:45→21:06)
[2022-07-13 06:29] VITALS: BP 160/91
--- NOTE | 2022-07-13 06:30 | NUR ---
Patient in room [facility] 346. I have received report from Shyam TRIPP and had the opportunity to ask questions and assume patient care.
[2022-07-13 06:42] LABS: BASOPHILS % (AUTO) 0.1 % (0-1); EOSINOPHILS % (AUTO) 0 % (0-6); HEMATOCRIT 42.9 % (42.0-52.0); HEMOGLOBIN 14.5 g/dl (14.0-17.9); LYMPHOCYTES # (AUTO) 0.6 X10'3 (1.1-4.8); LYMPHOCYTES % (AUTO) 4.2 % (21-51); MEAN CORPUSCULAR HEMOGLOBIN 32.3 PG (27.0-31.0); MEAN CORPUSCULAR HGB CONC 33.8 g/dL (33.0-36.5); MEAN CORPUSCULAR VOLUME 95.7 FL (78-98); MEAN PLATELET VOLUME 8.4 FL (7.4-10.4); MONOCYTES # (AUTO) 1.1 X10'3 (0-0.9); MONOCYTES % (AUTO) 7.2 % (2-12); NEUTROPHILS # (AUTO) 13.5 X10'3 (1.8-7.7); NEUTROPHILS % (AUTO) 88.5 % (42-75); PLATELET COUNT 305 X10'3 (140-440); RED BLOOD COUNT 4.49 X10'6 (4.70-6.10); RED CELL DISTRIBUTION WIDTH 13.3 % (11.5-14.5); WHITE BLOOD COUNT 15.3 X10'3 (4.5-11.0)
[2022-07-13 06:46] LABS: ANION GAP 4 (8-16); BLOOD UREA NITROGEN 48 MG/DL (7-18); CALCIUM 10.4 MG/DL (8.5-10.1); CHLORIDE 105 MMOL/L (99-107); CREATININE 1.09 MG/DL (0.60-1.10); GLUCOSE 174 MG/DL (70-104); POTASSIUM 3.6 MMOL/L (3.5-5.1); SODIUM 147 MMOL/L (135-145); TOTAL CARBON DIOXIDE 38.5 MMOL/L (24-32); eGFR 67 ML/MIN
[2022-07-13] MEDS: docusate sod 100mg capsule PO SCH ×2 (07:58→19:41)
[2022-07-13] MEDS: multivitamins, therapeutics tablet PO SCH (07:58)
[2022-07-13] MEDS: methylPREDNISolone sod succ 125mg/2ml vial IV SCH ×2 (07:59→19:40)
[2022-07-13] MEDS: normal saline 1000ml 1,000 ML IV SCH (07:59)
[2022-07-13] MEDS: K and/or MAG REPLACEMENT MC SCH ×2 (08:00→19:02)
[2022-07-13 08:31] LABS: PLATELET ESTIMATE NORMAL; TOTAL CELLS COUNTED 100
[2022-07-13 10:56] VITALS: BP 121/83
[2022-07-13] MEDS: ringers solution, lacted 1,000 ML IV SCH ×3 (11:26→21:21)
[2022-07-13] MEDS ORDERED: nicotine 21mg patch - 24 hr TD ONE (12:00)
[2022-07-13] MEDS ORDERED: metoclopramide 5 mg/ml inj IV PRN (12:00)
--- NOTE | 2022-07-13 18:44 | NUR ---
Problems reprioritized. Patient report given, questions answered & plan of care reviewed with Shyam TRIPP.
[2022-07-13] MEDS: atorvastatin 20mg tablet PO SCH (19:40)
[2022-07-13 22:00] VITALS: BP 158/81
[2022-07-14] MEDS: piperacillin/tazo 3.375gm/50ml 50 ML IV SCH ×3 (00:15→17:33)
[2022-07-14 02:00] VITALS: BP 143/79
[2022-07-14] MEDS: ipratropium/albuterol 3ml nebule NEB SCH ×4 (02:32→19:41)
[2022-07-14] MEDS: ringers solution, lacted 1,000 ML IV SCH ×2 (04:40→10:26)
[2022-07-14 04:47] LABS: ABG BASE EXCESS 11.9 mmol/L (-2.0-2.0); ABG HCO3 35.4 mmol/L (22.0-26.0); ABG OXYGEN SATURATION 84.3 % (94-97); ABG PCO2 (T) 41.7 mmHg (35.0-48.0); ABG PO2 (T) 47.6 mmHg (75.0-100.0); FCOHb 0.3 % (0.0-3.9); FLOW 45 L/min; FMetHb 0.2 % (0.0-1.5); FO2Hb 83.9 % (94-97); PATIENT TEMPERATURE 37.4; TOTAL HEMOGLOBIN 14.1 G/dl (14.0-17.9)
[2022-07-14 06:07] LABS: ALBUMIN 1.9 G/DL (3.4-5.0); ANION GAP 2 (8-16); BLOOD UREA NITROGEN 39 MG/DL (7-18); BUN/CREATININE RATIO 36.8 (5.4-32.0); CALCIUM 9.9 MG/DL (8.5-10.1); CHLORIDE 105 MMOL/L (99-107); CREATININE 1.06 MG/DL (0.60-1.10); GLUCOSE 166 MG/DL (70-104); SODIUM 149 MMOL/L (135-145); eGFR 69 ML/MIN
[2022-07-14 06:08] LABS: BASOPHILS % (AUTO) 0.1 % (0-1); EOSINOPHILS % (AUTO) 0 % (0-6); HEMOGLOBIN 13.1 g/dl (14.0-17.9); LYMPHOCYTES % (AUTO) 5.9 % (21-51); MEAN CORPUSCULAR HEMOGLOBIN 31.9 PG (27.0-31.0); MEAN CORPUSCULAR HGB CONC 33.4 g/dL (33.0-36.5); MEAN CORPUSCULAR VOLUME 95.2 FL (78-98); MEAN PLATELET VOLUME 8.4 FL (7.4-10.4); MONOCYTES # (AUTO) 1.3 X10'3 (0-0.9); NEUTROPHILS # (AUTO) 13.8 X10'3 (1.8-7.7); PLATELET COUNT 286 X10'3 (140-440); RED CELL DISTRIBUTION WIDTH 13.7 % (11.5-14.5); WHITE BLOOD COUNT 16.1 X10'3 (4.5-11.0)
--- NOTE | 2022-07-14 06:20 | NUR ---
Patient in room [facility] 346. I have received report from Shyam TRIPP and had the opportunity to ask questions and assume patient care.
[2022-07-14 06:36] LABS: POTASSIUM 2.9 MMOL/L (3.5-5.1)
--- NOTE | 2022-07-14 06:39 | NUR ---
PAGER ID: [phone] MESSAGE: [facility] [id number] re: 346a Jaskaran Byrnes patient has a potassium of 2.9 and a C02 of 42.0 this morning. Thanks Hill
[2022-07-14 06:55] LABS: ABG BASE EXCESS 13.6 mmol/L (-2.0-2.0); ABG HCO3 37.8 mmol/L (22.0-26.0); ABG OXYGEN SATURATION 90.4 % (94-97); ABG PCO2 (T) 45.2 mmHg (35.0-48.0); ABG PO2 (T) 58.5 mmHg (75.0-100.0); ALLEN'S TEST POSITIVE; FCOHb 0.3 % (0.0-3.9); FMetHb 0.3 % (0.0-1.5); FO2Hb 89.9 % (94-97); RESPIRATORY RATE 10 b/min; TOTAL HEMOGLOBIN 13.6 G/dl (14.0-17.9)
[2022-07-14 07:00] VITALS: BP 151/71
[2022-07-14] MEDS: multivitamins, therapeutics tablet PO SCH (07:11)
[2022-07-14] MEDS: docusate sod 100mg capsule PO SCH ×2 (07:11→20:41)
[2022-07-14] MEDS: guaiFENesin ER 600mg tablet PO SCH ×2 (07:14→20:41)
[2022-07-14] MEDS: nicotine 21mg patch - 24 hr TD SCH (07:15)
[2022-07-14] MEDS: methylPREDNISolone sod succ 125mg/2ml vial IV SCH ×2 (07:15→20:41)
[2022-07-14] MEDS: K and/or MAG REPLACEMENT MC SCH ×2 (07:20→20:00)
[2022-07-14] MEDS ORDERED: potassium Cl 20 mEq SR tablet PO PRN ×2 (08:35)
[2022-07-14] MEDS ORDERED: potassium Cl 40MEQ/1/2NS 520ml 520 ML IV PRN (08:35)
--- NOTE | 2022-07-14 10:10 | NUR ---
Problems reprioritized. Patient report given, questions answered & plan of care reviewed with Salas TRIPP.
--- NOTE | 2022-07-14 11:47 | NUR ---
I was given a verbal order from Dr. Pitts to change the pt's LR from 150ml/hr to 70 ml/hr. I have changed the pt's IV accordingly.
[2022-07-14 12:00] VITALS: BP 148/76
[2022-07-14] MEDS: normal saline 1000ml 1,000 ML IV SCH (13:20)
[2022-07-14] MEDS: potassium Cl 40MEQ/1/2NS 520ml 520 ML IV PRN ×2 (13:39→18:07)
[2022-07-14 18:00] VITALS: BP 142/72
[2022-07-14] MEDS: atorvastatin 20mg tablet PO SCH (20:41)
[2022-07-14 22:00] VITALS: BP 149/74
[2022-07-15] MEDS: piperacillin/tazo 3.375gm/50ml 50 ML IV SCH ×3 (00:07→17:31)
[2022-07-15 01:09] LABS: ALBUMIN 1.7 G/DL (3.4-5.0); ANION GAP 7 (8-16); BLOOD UREA NITROGEN 32 MG/DL (7-18); BUN/CREATININE RATIO 40.5 (10.0-20.0); CHLORIDE 101 MMOL/L (99-107); CREATININE 0.79 MG/DL (0.60-1.10); GLUCOSE 166 MG/DL (70-104); POTASSIUM 3.5 MMOL/L (3.5-5.1); SODIUM 140 MMOL/L (135-145); TOTAL CARBON DIOXIDE 32.2 MMOL/L (24-32); eGFR > 90 ML/MIN
[2022-07-15 02:00] VITALS: BP 146/72
[2022-07-15] MEDS: normal saline 1000ml 1,000 ML IV SCH (03:08)
[2022-07-15] MEDS: ipratropium/albuterol 3ml nebule NEB SCH ×4 (03:57→21:12)
--- NOTE | 2022-07-15 04:13 | NUR ---
Twenty minutes before midnight, pt BiPAP settings adjusted for more appropriate tidal volumes. Settings are 12/6, 10, 60%. Pt is more comfortable and has tidal volumes of 700-800, instead of in the thousands. VSS at this time and throughout the night. RT will continue to monitor pt.
[2022-07-15 06:22] LABS: BASOPHILS % (AUTO) 0.1 % (0-1); EOSINOPHILS % (AUTO) 0 % (0-6); HEMATOCRIT 36.3 % (42.0-52.0); HEMOGLOBIN 12.3 g/dl (14.0-17.9); LYMPHOCYTES # (AUTO) 1.1 X10'3 (1.1-4.8); LYMPHOCYTES % (AUTO) 6.3 % (21-51); MEAN CORPUSCULAR HEMOGLOBIN 31.9 PG (27.0-31.0); MEAN CORPUSCULAR HGB CONC 33.9 g/dL (33.0-36.5); MEAN PLATELET VOLUME 8.3 FL (7.4-10.4); MONOCYTES # (AUTO) 1.3 X10'3 (0-0.9); MONOCYTES % (AUTO) 7.3 % (2-12); NEUTROPHILS # (AUTO) 15.7 X10'3 (1.8-7.7); NEUTROPHILS % (AUTO) 86.3 % (42-75); PLATELET COUNT 277 X10'3 (140-440); RED BLOOD COUNT 3.86 X10'6 (4.70-6.10); RED CELL DISTRIBUTION WIDTH 13.3 % (11.5-14.5); WHITE BLOOD COUNT 18.2 X10'3 (4.5-11.0)
--- NOTE | 2022-07-15 06:37 | NUR ---
Patient in room PCU 3016. I have received report from Bella TRIPP and had the opportunity to ask questions and assume patient care.
[2022-07-15 07:14] LABS: TOTAL CELLS COUNTED 100
[2022-07-15 07:17] LABS: PLATELET ESTIMATE NORMAL; STOMATOCYTES FEW
[2022-07-15] MEDS: guaiFENesin ER 600mg tablet PO SCH ×2 (07:40→20:16)
[2022-07-15] MEDS: docusate sod 100mg capsule PO SCH ×2 (07:40→20:16)
[2022-07-15] MEDS: multivitamins, therapeutics tablet PO SCH (07:40)
[2022-07-15] MEDS: methylPREDNISolone sod succ 125mg/2ml vial IV SCH (07:41)
[2022-07-15] MEDS: nicotine 21mg patch - 24 hr TD SCH (07:58)
[2022-07-15] MEDS: K and/or MAG REPLACEMENT MC SCH ×2 (07:58→20:00)
[2022-07-15 08:56] VITALS: BP 152/76
--- NOTE | 2022-07-15 09:00 | NUR ---
Dr Cook gave verbal order to remove NG tube and start Clear Liquid diet. Patient already on Clear liquid diet.
--- NOTE | 2022-07-15 09:20 | NUR ---
Hong gave order to keep O2 88-89%
--- NOTE | 2022-07-15 09:55 | NUR ---
NG Tube removed. No s/s of distress noted at this time. Will continue to monitor.
--- NOTE | 2022-07-15 11:22 | NUR ---
as clinical instructor, i reviewed student nurse physical assessment of pt
[2022-07-15 11:26] VITALS: BP 156/76
--- NOTE | 2022-07-15 12:47 | NUR ---
PAGER ID: [phone] MESSAGE: [id number] Fitz Patient doesn't have a order for a pt eval. Do you want me to put one in? And just JAYLA patient is on 3L NC now SATS @ 89%. Thank you Haley BRIDGES [phone]
--- NOTE | 2022-07-15 12:50 | NUR ---
Dr Pitts called and gave order for a PT eval/treat for the patient.
--- NOTE | 2022-07-15 12:52 | NUR ---
Initial: Pt admit for ileus s/p robotic right inguinal hernia repair and excision of umbilical fat on 07/09/2022 per H&P. Per progress note pt with acute respiratory failure with hypoxemia and COPD exacerbation. Pt initially NPO with an NGT in place however advanced to clear liquids 07/13 with orders to discontinue NGT today. Per EMR LBM 07/08 and pt receiving routine Colace, now passing flatus per MD notes. No appropriate nutrition intervention in view of current diet order. Recommend advancing to regular diet as medically indicated. Will continue to follow closely. Recommendations: 1) Advance to regular diet as medically indicated 2) Monitor need for nutrition intervention; consider nutrition support if unable to advance PO diet soon 3) Bowel care per physician 4) Weekly scaled weights Addendum: 07/15/22 at [address] Amended: Links added.
[2022-07-15] MEDS: morphine 2 MG/ML inj. syringe IV PRN ×2 (14:28→20:22)
[2022-07-15 14:57] VITALS: BP 154/74
[2022-07-15 18:00] VITALS: BP 167/81
--- NOTE | 2022-07-15 18:18 | NUR ---
Problems reprioritized. Patient report given, questions answered & plan of care reviewed with Jhon BRIDGES.
--- NOTE | 2022-07-15 18:41 | NUR ---
AGREE WITH HAZARDOUS MATERIAL SPECIALIST AM ASSESSMENT
[2022-07-15] MEDS: atorvastatin 20mg tablet PO SCH (20:20)
[2022-07-15] MEDS: methylPREDNISolone sod succ/PF 40mg inj. IV SCH (20:20)
[2022-07-15 23:00] VITALS: BP 137/70
[2022-07-16] MEDS: piperacillin/tazo 3.375gm/50ml 50 ML IV SCH ×3 (00:02→16:43)
[2022-07-16 03:00] VITALS: BP 148/75
[2022-07-16] MEDS: ipratropium/albuterol 3ml nebule NEB SCH ×4 (03:00→20:20)
--- NOTE | 2022-07-16 06:15 | NUR ---
Patient in room PCU 3016. I have received report from Jhon TRIPP and had the opportunity to ask questions and assume patient care.
--- NOTE | 2022-07-16 06:23 | NUR ---
Problems reprioritized. Patient report given, questions answered & plan of care reviewed with Haley BRIDGES.
[2022-07-16 07:00] VITALS: BP 146/78
[2022-07-16] MEDS: methylPREDNISolone sod succ/PF 40mg inj. IV SCH ×2 (07:37→20:08)
[2022-07-16] MEDS: K and/or MAG REPLACEMENT MC SCH ×2 (08:00→20:09)
[2022-07-16] MEDS: docusate sod 100mg capsule PO SCH ×2 (08:03→20:08)
[2022-07-16] MEDS: guaiFENesin ER 600mg tablet PO SCH ×2 (08:04→20:08)
[2022-07-16] MEDS: multivitamins, therapeutics tablet PO SCH (08:04)
[2022-07-16] MEDS: nicotine 21mg patch - 24 hr TD SCH (08:05)
[2022-07-16 08:26] LABS: BASOPHILS # (AUTO) 0.1 X10'3 (0-0.2); BASOPHILS % (AUTO) 0.3 % (0-1); EOSINOPHILS % (AUTO) 0.1 % (0-6); HEMATOCRIT 42.7 % (42.0-52.0); HEMOGLOBIN 14.2 g/dl (14.0-17.9); LYMPHOCYTES # (AUTO) 1.4 X10'3 (1.1-4.8); LYMPHOCYTES % (AUTO) 5.5 % (21-51); MEAN CORPUSCULAR HEMOGLOBIN 31.5 PG (27.0-31.0); MEAN CORPUSCULAR HGB CONC 33.3 g/dL (33.0-36.5); MEAN CORPUSCULAR VOLUME 94.6 FL (78-98); MONOCYTES # (AUTO) 0.9 X10'3 (0-0.9); MONOCYTES % (AUTO) 3.5 % (2-12); NEUTROPHILS # (AUTO) 23.8 X10'3 (1.8-7.7); NEUTROPHILS % (AUTO) 90.6 % (42-75); PLATELET COUNT 322 X10'3 (140-440); RED BLOOD COUNT 4.51 X10'6 (4.70-6.10); RED CELL DISTRIBUTION WIDTH 13.4 % (11.5-14.5)
[2022-07-16 08:32] LABS: WHITE BLOOD COUNT 26.2 X10'3 (4.5-11.0)
--- NOTE | 2022-07-16 08:35 | NUR ---
Critical WBC 26.2. Notified Dr Pitts. No new orders noted
[2022-07-16 08:37] LABS: ALBUMIN 1.8 G/DL (3.4-5.0); ANION GAP 6 (8-16); BLOOD UREA NITROGEN 28 MG/DL (7-18); BUN/CREATININE RATIO 33.3 (10.0-20.0); CHLORIDE 99 MMOL/L (99-107); CREATININE 0.84 MG/DL (0.60-1.10); GLUCOSE 155 MG/DL (70-104); POTASSIUM 3.3 MMOL/L (3.5-5.1); SODIUM 137 MMOL/L (135-145); TOTAL CARBON DIOXIDE 31.9 MMOL/L (24-32); eGFR > 90 ML/MIN
--- NOTE | 2022-07-16 08:52 | NUR ---
Dr Pitts gave a verbal order to give a one time dose of MOM.
[2022-07-16] MEDS ORDERED: magnesium hydroxide 30ml (MOM) UD suspension PO ONE (08:55)
[2022-07-16 09:19] LABS: PLATELET ESTIMATE NORMAL; TOTAL CELLS COUNTED 100
[2022-07-16] MEDS: enoxaparin 40mg/0.4ml syringe SUBCUT SCH (10:02)
--- NOTE | 2022-07-16 10:30 | NUR ---
Clarified with Dr Pitts that we are not removing the patient's Gardner Catheter. He assured me that we are not removing the Gardner catheter.
[2022-07-16 11:00] VITALS: BP 143/79
[2022-07-16] MEDS: morphine 2 MG/ML inj. syringe IV PRN (13:48)
[2022-07-16 15:53] VITALS: BP 145/74
[2022-07-16 18:00] VITALS: BP 149/75
--- NOTE | 2022-07-16 18:37 | NUR ---
Problems reprioritized. Patient report given, questions answered & plan of care reviewed with Bella TRIPP.
[2022-07-16] MEDS ORDERED: Potassium Cl 40 MEQ in sodium chloride 0.45% 500 ML IV ONE (19:15)
[2022-07-16] MEDS: atorvastatin 20mg tablet PO SCH (20:08)
[2022-07-16 22:00] VITALS: BP 134/79
[2022-07-17] MEDS: piperacillin/tazo 3.375gm/50ml 50 ML IV SCH ×2 (00:21→08:14)
[2022-07-17 02:00] VITALS: BP 144/74
[2022-07-17] MEDS: ipratropium/albuterol 3ml nebule NEB SCH ×4 (02:59→20:05)
[2022-07-17 07:05] VITALS: BP 131/76
[2022-07-17] MEDS: K and/or MAG REPLACEMENT MC SCH ×2 (08:00→20:00)
[2022-07-17] MEDS: enoxaparin 40mg/0.4ml syringe SUBCUT SCH (08:13)
[2022-07-17] MEDS: nicotine 21mg patch - 24 hr TD SCH (08:14)
[2022-07-17] MEDS: guaiFENesin ER 600mg tablet PO SCH ×2 (08:15→20:59)
[2022-07-17] MEDS: docusate sod 100mg capsule PO SCH ×2 (08:15→20:00)
[2022-07-17] MEDS: multivitamins, therapeutics tablet PO SCH (08:15)
[2022-07-17] MEDS: methylPREDNISolone sod succ/PF 40mg inj. IV SCH (08:15)
[2022-07-17 09:20] LABS: BASOPHILS % (AUTO) 0 % (0-1); EOSINOPHILS % (AUTO) 0.1 % (0-6); HEMATOCRIT 39.6 % (42.0-52.0); HEMOGLOBIN 13.1 g/dl (14.0-17.9); LYMPHOCYTES # (AUTO) 1.4 X10'3 (1.1-4.8); LYMPHOCYTES % (AUTO) 4.9 % (21-51); MEAN CORPUSCULAR HEMOGLOBIN 31.5 PG (27.0-31.0); MEAN CORPUSCULAR VOLUME 95.3 FL (78-98); MEAN PLATELET VOLUME 8.5 FL (7.4-10.4); MONOCYTES # (AUTO) 1.3 X10'3 (0-0.9); MONOCYTES % (AUTO) 4.6 % (2-12); NEUTROPHILS # (AUTO) 26.5 X10'3 (1.8-7.7); NEUTROPHILS % (AUTO) 90.4 % (42-75); PLATELET COUNT 264 X10'3 (140-440); RED BLOOD COUNT 4.15 X10'6 (4.70-6.10); RED CELL DISTRIBUTION WIDTH 13.4 % (11.5-14.5)
[2022-07-17 09:32] LABS: ALBUMIN 1.5 G/DL (3.4-5.0); ANION GAP 4 (8-16); BLOOD UREA NITROGEN 28 MG/DL (7-18); BUN/CREATININE RATIO 31.5 (10.0-20.0); CALCIUM 8.6 MG/DL (8.5-10.1); CHLORIDE 98 MMOL/L (99-107); CREATININE 0.89 MG/DL (0.60-1.10); GLUCOSE 151 MG/DL (70-104); POTASSIUM 3.6 MMOL/L (3.5-5.1); SODIUM 135 MMOL/L (135-145); TOTAL CARBON DIOXIDE 32.9 MMOL/L (24-32); eGFR 85 ML/MIN
[2022-07-17 09:33] LABS: WHITE BLOOD COUNT 29.3 X10'3 (4.5-11.0)
[2022-07-17 11:01] VITALS: BP 131/73
[2022-07-17 11:50] LABS: LARGE PLATELETS FEW; PLATELET ESTIMATE NORMAL; TOTAL CELLS COUNTED 100
[2022-07-17] MEDS ORDERED: iohexol 350MG/ML 100ml bottle IV ONE (14:57)
--- NOTE | 2022-07-17 16:02 | NUR ---
down to CTA
[2022-07-17 18:00] VITALS: BP 131/70
[2022-07-17] MEDS: atorvastatin 20mg tablet PO SCH (20:59)
[2022-07-17] MEDS: HYDROmorphone inj. 0.5 MG/0.5 ML DISP.SYRIN IV PRN (21:12)
[2022-07-17 22:00] VITALS: BP 142/73
[2022-07-18] MEDS: ipratropium/albuterol 3ml nebule NEB SCH ×4 (02:35→20:11)
[2022-07-18 03:00] VITALS: BP 143/76
[2022-07-18 07:11] LABS: BASOPHILS % (AUTO) 0 % (0-1); EOSINOPHILS # (AUTO) 0.1 X10'3 (0-0.9); EOSINOPHILS % (AUTO) 0.3 % (0-6); HEMATOCRIT 39.6 % (42.0-52.0); HEMOGLOBIN 13.3 g/dl (14.0-17.9); LYMPHOCYTES # (AUTO) 1.3 X10'3 (1.1-4.8); LYMPHOCYTES % (AUTO) 4.7 % (21-51); MEAN CORPUSCULAR HEMOGLOBIN 31.7 PG (27.0-31.0); MEAN CORPUSCULAR HGB CONC 33.6 g/dL (33.0-36.5); MEAN CORPUSCULAR VOLUME 94.3 FL (78-98); MEAN PLATELET VOLUME 8.9 FL (7.4-10.4); MONOCYTES # (AUTO) 1.3 X10'3 (0-0.9); MONOCYTES % (AUTO) 4.9 % (2-12); NEUTROPHILS # (AUTO) 23.9 X10'3 (1.8-7.7); NEUTROPHILS % (AUTO) 90.1 % (42-75); PLATELET COUNT 288 X10'3 (140-440); RED CELL DISTRIBUTION WIDTH 13.7 % (11.5-14.5)
[2022-07-18 07:16] LABS: ALBUMIN 1.5 G/DL (3.4-5.0); ANION GAP 3 (8-16); BLOOD UREA NITROGEN 25 MG/DL (7-18); BUN/CREATININE RATIO 35.7 (10.0-20.0); CALCIUM 8.3 MG/DL (8.5-10.1); CHLORIDE 97 MMOL/L (99-107); GLUCOSE 119 MG/DL (70-104); POTASSIUM 3.7 MMOL/L (3.5-5.1); SODIUM 131 MMOL/L (135-145); TOTAL CARBON DIOXIDE 30.6 MMOL/L (24-32); eGFR > 90 ML/MIN
[2022-07-18 07:28] LABS: WHITE BLOOD COUNT 26.6 X10'3 (4.5-11.0)
[2022-07-18] MEDS: nicotine 21mg patch - 24 hr TD SCH ×2 (08:00→10:47)
[2022-07-18] MEDS: guaiFENesin ER 600mg tablet PO SCH ×2 (08:00→20:00)
[2022-07-18] MEDS: levoFLOXACIN-Levaquin 500mg/D5 100 ML IV SCH (08:00)
[2022-07-18] MEDS: K and/or MAG REPLACEMENT MC SCH ×2 (08:00→20:00)
[2022-07-18] MEDS: docusate sod 100mg capsule PO SCH ×2 (08:00→20:00)
[2022-07-18 08:31] LABS: PLATELET ESTIMATE NORMAL; TOTAL CELLS COUNTED 100
[2022-07-18] MEDS: multivitamins, therapeutics tablet PO SCH (10:37)
[2022-07-18] MEDS: methylPREDNISolone sod succ/PF 40mg inj. IV SCH (10:37)
[2022-07-18] MEDS: enoxaparin 40mg/0.4ml syringe SUBCUT SCH (10:37)
[2022-07-18] MEDS: ondansetron/PF 4mg/2ml inj IV PRN (19:01)
[2022-07-18] MEDS: mag hydrox/Alum hydrox/simeth 30ml oral suspension PO PRN (19:01)
[2022-07-18 20:00] VITALS: BP 116/69
[2022-07-18] MEDS: atorvastatin 20mg tablet PO SCH (21:00)
[2022-07-19] VITALS: BP 125/78
[2022-07-19] MEDS: ipratropium/albuterol 3ml nebule NEB SCH ×2 (02:34→07:30)
[2022-07-19 04:13] VITALS: BP 132/78
--- NOTE | 2022-07-19 05:00 | NUR ---
Pt. is awake alert oriented c/o abd distention and discomfort. Medicated with Maalox and Zofran for gas pain tolerated well. Pt. has peripheral SL intact. Gardner with large amt ramona/orange clear urine. Ate 25 % of clear liq diet, drinks plenty of water. Slept most of the night no further c/o pain or discomfort. Plan for antigas meds, physical therapy and buttermaker care placement..
[2022-07-19 07:00] VITALS: BP 125/69
[2022-07-19] MEDS: K and/or MAG REPLACEMENT MC SCH (08:00)
[2022-07-19] MEDS: docusate sod 100mg capsule PO SCH (08:00)
[2022-07-19] MEDS: multivitamins, therapeutics tablet PO SCH (08:00)
[2022-07-19] MEDS: mag hydrox/Alum hydrox/simeth 30ml oral suspension PO PRN (09:36)
[2022-07-19] MEDS: methylPREDNISolone sod succ/PF 40mg inj. IV SCH (09:36)
[2022-07-19] MEDS: enoxaparin 40mg/0.4ml syringe SUBCUT SCH (09:37)
[2022-07-19] MEDS: levoFLOXACIN-Levaquin 500mg/D5 100 ML IV SCH (09:38)
[2022-07-19] MEDS: guaiFENesin ER 600mg tablet PO SCH (09:38)
[2022-07-19] MEDS: nicotine 21mg patch - 24 hr TD SCH (09:43)
[2022-07-19 10:00] VITALS: BP 121/72
[2022-07-19] MEDS ORDERED: pantoprazole 40mg Tablet.DR PO SCH (10:15)
--- NOTE | 2022-07-19 12:50 | NUR ---
REMOVED PIV - PT TOLERATED WELL
--- NOTE | 2022-07-19 12:50 | NUR ---
CALLED , SPOKE WITH ANDI. GAVE REPORT AND ANSWERED ALL QUESTIONS, COMMENTS, CONCERNS AT THIS TIME.
--- NOTE | 2022-07-19 13:22 | NUR ---
TELE #19 ACCIDENTALLY REMAINED ON THE PATIENT. CALLED , SPOKE WITH SHY. SHE WILL ASK RITIKA CARGO TO RETURN TO US.
--- NOTE | 2022-07-19 13:23 | NUR ---
Student documentation: I have reviewed and agree with all interventions, assessments performed and documented by JANICE.
--- NOTE | 2022-07-19 13:23 | NUR ---
Student Medication Administration: For this medication-pass time frame, all medication were reviewed, dispensed, administered and documented per hospital policy by JANICE.
--- NOTE | 2022-07-19 13:24 | NUR ---
PT WAS PICKED UP BY [employer]. CALLED PT TO ADVISE AND ANSWER ANY QUESTIONS. ALL PERSONAL BELONGINGS WERE SENT WITH [employer] PERSONNEL.
--- NOTE | 2022-07-19 13:45 | NUR ---
called again, spoke with Chrissie. Pt has been rec'd to the unit but she has not been able to see him yet. Advised that give tele box to [employer]. She will see what she can do and advised that she might just lock it up until Thursday when they can bring it back. She will call me back/ Monitoring
== END 2022-07-19 13:15 | DRG 388 ==
LOC: ER 04:56 → ED HOLD 10:39 → SUR 3N 07-11 09:45 → PCU 3S 07-14 10:39
PROVIDERS: ADMIT Family Medicine; ATTEND Family Medicine
PROC: BW251ZZ Computerized Tomography (CT Scan) of Chest, Abdomen and Pelvis using Low Osmolar Contrast (ICD-10-PCS; 2022-07-10)
PROC: 0T9B80Z Drainage of Bladder with Drainage Device, Via Natural or Artificial Opening Endoscopic (ICD-10-PCS; 2022-07-10)
PROC: 0D9670Z Drainage of Stomach with Drainage Device, Via Natural or Artificial Opening (ICD-10-PCS; principal; 2022-07-12)
PROC: 5A0935A Assistance with Respiratory Ventilation, Less than 24 Consecutive Hours, High Flow/Velocity Cannula (ICD-10-PCS; 2022-07-12)
PROC: 5A09357 Assistance with Respiratory Ventilation, Less than 24 Consecutive Hours, Continuous Positive Airway Pressure (ICD-10-PCS; 2022-07-13)
PROC: 5A0935A Assistance with Respiratory Ventilation, Less than 24 Consecutive Hours, High Flow/Velocity Cannula (ICD-10-PCS; 2022-07-13)
PROC: 5A09357 Assistance with Respiratory Ventilation, Less than 24 Consecutive Hours, Continuous Positive Airway Pressure (ICD-10-PCS; 2022-07-14)
PROC: 5A0935A Assistance with Respiratory Ventilation, Less than 24 Consecutive Hours, High Flow/Velocity Cannula (ICD-10-PCS; 2022-07-14)
PROC: 5A09357 Assistance with Respiratory Ventilation, Less than 24 Consecutive Hours, Continuous Positive Airway Pressure (ICD-10-PCS; 2022-07-15)
PROC: 5A0935A Assistance with Respiratory Ventilation, Less than 24 Consecutive Hours, High Flow/Velocity Cannula (ICD-10-PCS; 2022-07-15)
PROC: 5A09357 Assistance with Respiratory Ventilation, Less than 24 Consecutive Hours, Continuous Positive Airway Pressure (ICD-10-PCS; 2022-07-17)
PROC: B32T1ZZ Computerized Tomography (CT Scan) of Left Pulmonary Artery using Low Osmolar Contrast (ICD-10-PCS; 2022-07-17)
PROC: B3201ZZ Computerized Tomography (CT Scan) of Thoracic Aorta using Low Osmolar Contrast (ICD-10-PCS; 2022-07-17)
PROC: B32S1ZZ Computerized Tomography (CT Scan) of Right Pulmonary Artery using Low Osmolar Contrast (ICD-10-PCS; 2022-07-17)
DX: K56.7 Ileus, unspecified (principal); J96.01 Acute respiratory failure with hypoxia; N17.0 Acute kidney failure with tubular necrosis; E87.3 Alkalosis; J44.1 Chronic obstructive pulmonary disease with (acute) exacerbation; S37.30XA Unspecified injury of urethra, initial encounter; R65.10 Systemic inflammatory response syndrome (SIRS) of non-infectious origin without acute organ dysfunction; R31.9 Hematuria, unspecified; E87.6 Hypokalemia; E78.5 Hyperlipidemia, unspecified; F17.210 Nicotine dependence, cigarettes, uncomplicated; N40.1 Benign prostatic hyperplasia with lower urinary tract symptoms; R33.8 Other retention of urine; T38.0X5A Adverse effect of glucocorticoids and synthetic analogues, initial encounter; Z86.73 Personal history of transient ischemic attack (TIA), and cerebral infarction without residual deficits; Z90.79 Acquired absence of other genital organ(s); Z88.8 Allergy status to other drugs, medicaments and biological substances; Z79.899 Other long term (current) drug therapy; Y92.89 Other specified places as the place of occurrence of the external cause
CPT/HCPCS: 36415; 36600; 71045; 71046; 71260; 71275; 74177; 80048; 80053; 80202; 81001; 82803; 82948; 83605; 83735; 83880; 84145; 84484; 85007; 85018; 85025; 85610; 86885; 86900; 86901; 87040; 87077; 87081; 87088; 87186; 93005; 93308; 94640; 94660; 94664; 94668; 94760; 96361; 96374; 96375; 97110; 97161; 97530; 99285; A4615; A4624; A5200; G0378; J0131; J1170; J1650; J1940; J1956; J2270; J2405; J2543; J2920; J2930; J3370; J3480; J3490; J7030; J7040; J7120; Q9967